=== PATIENT | male | born 1995 | race African-American/Black ===

== ENCOUNTER 2018-05-04 09:46 | Emergency (ER) | payer OTHER ==
[2018-05-04 10:25] LABS: Absolute Lymphocytes (CBC) 1.5 K/uL (0.7-4.9); Absolute Monocytes 0.4 K/uL (0.1-1.3); Absolute Neutrophil 3.2 K/uL (1.8-8.0); Basophils % 0.7 % (0-1.3); Eosinophils % 5.7 % (0-4.4); Hematocrit 47.4 % (39.6-49.0); Lymphocytes % 27.8 % (15.3-44.8); MCH 31.9 pg (27.0-35.0); MPV 8.4 fL (7.6-11.3); Monocytes % 7.4 % (3.3-12.3); RBC Red Blood Cell Count 5.16 M/uL (4.33-5.43)
[2018-05-04 10:30] LABS: Protime INR 0.97
[2018-05-04 10:53] LABS: ALT/SGPT 32 U/L (12-78); AST/SGOT 20 U/L (15-37); Albumin 4.3 g/dL (3.4-5.0); Alkaline Phosphatase 86 U/L (45-117); BUN Blood Urea Nitrogen 8 mg/dL (7-18); Bicarbonate 28 mmol/L (21-32); Bilirubin Direct 0.2 mg/dL (0-0.2); Bilirubin Total 0.8 mg/dL (0.2-1.0); Glucose Level 93 mg/dL (74-106); Potassium 4.1 mmol/L (3.5-5.1); Protein, Total 8.4 g/dL (6.4-8.2); Sodium Level 140 mmol/L (136-145)
[2018-05-04 10:59] LABS: Barbiturates NEGATIVE (NEGATIVE); Benzodiazepines NEGATIVE (NEGATIVE); Cocaine NEGATIVE (NEGATIVE); METHAMPHETAM NEGATIVE (NEGATIVE); Methadone NEGATIVE (NEGATIVE); Opiates NEGATIVE (NEGATIVE); Phencyclidine NEGATIVE (NEGATIVE); THC Cannibis NEGATIVE (NEGATIVE)
[2018-05-04 11:56] LABS: Urine Blood NEGATIVE (NEG); Urine Glucose NEGATIVE (NEG); Urine Protein NEGATIVE (NEG)
--- NOTE | 2018-05-04 12:35 | EDPHYS ---
Physician Documentation [facility] Name: Clark Vallecillo Age: 22 yrs Sex: Male : 1995 Arrival Date: 05/04/2018 Time: 09:43 Bed 2 Private MD: ED Physician Kan Salinas HPI: 05/04 23:07 This 22 yrs old Black Male presents to ER via [employer] with complaints of kdr ingestion of unknown medication. 23:07 The patient states that he took two pills to help him sleep. He states that he has been kdr doing this for some time. He denies any other injestion. Onset: The symptoms/episode began/occurred just prior to arrival, 2 hour(s) ago. Severity of symptoms: At their worst the symptoms were very mild in the emergency department the symptoms are unchanged. The patient has not experienced similar symptoms in the past. The patient has not recently seen a physician. Historical: - Allergies: 09:49 No Known Allergies; ss - Home Meds: 09:49 None [Active]; ss - PMHx: 09:49 None; ss - PSHx: 09:49 None; ss - Immunization history:: Adult Immunizations up to date. - Social history:: Smoking status: Patient/guardian denies using tobacco. - Ebola Screening: : Patient denies exposure to infectious person Patient denies travel to an Ebola-affected area in the 21 days before illness onset. ROS: 23:07 Constitutional: Negative for fever, chills, and weight loss, Eyes: Negative for injury, kdr pain, redness, and discharge, ENT: Negative for injury, pain, and discharge, Neck: Negative for injury, pain, and swelling, Cardiovascular: Negative for chest pain, palpitations, and edema, Respiratory: Negative for shortness of breath, cough, wheezing, and pleuritic chest pain, Abdomen/GI: Negative for abdominal pain, nausea, vomiting, diarrhea, and constipation, Back: Negative for injury and pain, : Negative for injury, bleeding, discharge, and swelling, MS/Extremity: Negative for injury and deformity, Skin: Negative for injury, rash, and discoloration, Neuro: Negative for headache, weakness, numbness, tingling, and seizure activity. Psych: Negative for depression, anxiety, suicide ideation, homicidal ideation, and hallucinations, Allergy/Immunology: Negative for hives, rash, and allergies, Endocrine: Negative for neck swelling, polydipsia, polyuria, polyphagia, and marked weight changes, Hematologic/Lymphatic: Negative for swollen nodes, abnormal bleeding, and unusual bruising. Exam: 23:07 Constitutional: This is a well developed, well nourished patient who is awake, alert, kdr and in no acute distress. Head/Face: Normocephalic, atraumatic. Eyes: Pupils equal round and reactive to light, extra-ocular motions intact. Lids and lashes normal. Conjunctiva and sclera are non-icteric and not injected. Cornea within normal limits. Periorbital areas with no swelling, redness, or edema. Neck: Trachea midline, no thyromegaly or masses palpated, and no cervical lymphadenopathy. Supple, full range of motion without nuchal rigidity, or vertebral point tenderness. No Meningismus. Chest/axilla: Normal chest wall appearance and motion. Nontender with no deformity. No lesions are appreciated. Cardiovascular: Regular rate and rhythm with a normal S1 and S2. No gallops, murmurs, or rubs. Normal PMI, no JVD. No pulse deficits. Respiratory: Lungs have equal breath sounds bilaterally, clear to auscultation and percussion. No rales, rhonchi or wheezes noted. No increased work of breathing, no retractions or nasal flaring. Abdomen/GI: Soft, non-tender, with normal bowel sounds. No distension or tympany. No guarding or rebound. No evidence of tenderness throughout. Back: No spinal tenderness. No costovertebral tenderness. Full range of motion. Skin: Warm, dry with normal turgor. Normal color with no rashes, no lesions, and no evidence of cellulitis. MS/ Extremity: Pulses equal, no cyanosis. Neurovascular intact. Full, normal range of motion. Neuro: Awake and alert, GCS 15, oriented to person, place, time, and situation. Cranial nerves II-XII grossly intact. Motor strength 5/5 in all extremities. Sensory grossly intact. Cerebellar exam normal. Normal gait. Psych: Awake, alert, with orientation to person, place and time. Behavior, mood, and affect are within normal limits. Vital Signs: 09:49 BP 115 / 82; Pulse 61; Resp 15; Temp 98.0(TE); Pulse Ox 99% on R/A; Weight 68.04 kg; ss Height 5 ft. 6 in. (167.64 cm); Pain 0/10; 12:16 BP 119 / 83; Pulse 62; Resp 14; Temp 98.2(TE); Pulse Ox 98% on R/A; Pain 0/10; ss 09:49 Body Mass Index 24.21 (68.04 kg, 167.64 cm) ss MDM: 12:34 Patient medically screened. kdr 23:07 Data reviewed: vital signs, nurses notes, lab test result(s). Counseling: I had a kdr detailed discussion with the patient and/or guardian regarding: the historical points, exam findings, and any diagnostic results supporting the discharge/admit diagnosis, lab results, radiology results, the need for outpatient follow up. 05/04 09:56 Order name: Acetaminophen; Complete Time: 11:27 kdr 05/04 09:56 Order name: Basic Metabolic Panel; Complete Time: 11:27 kdr 05/04 09:56 Order name: CBC with Diff; Complete Time: 11:27 kdr 05/04 09:56 Order name: ETOH Level; Complete Time: 11:27 kdr 05/04 09:56 Order name: Hepatic Function; Complete Time: 11:27 kdr 05/04 09:56 Order name: PT-INR; Complete Time: 11:27 kdr 05/04 09:56 Order name: Ptt, Activated; Complete Time: 11:27 kdr 05/04 09:56 Order name: Salicylate; Complete Time: 11:27 kdr 05/04 09:56 Order name: Urine Drug Screen; Complete Time: 11:27 kdr 05/04 09:56 Order name: EKG; Complete Time: 09:57 kdr 05/04 09:56 Order name: EKG - Nurse/Tech; Complete Time: 10:16 kdr 05/04 09:56 Order name: IV Saline Lock; Complete Time: 10:16 kdr 05/04 09:56 Order name: Labs collected and sent; Complete Time: 10:16 kdr 05/04 10:46 Order name: Urine Dipstick--Ancillary (enter results) eb 05/04 09:56 Order name: Urine Dipstick-Ancillary (obtain specimen); Complete Time: 11:00 kdr Administered Medications: No medications were administered Disposition: 05/04/18 12:34 Discharged to Home. Impression: [place] substance ingestion: non-toxic. - Condition is Stable. - Discharge Instructions: Nontoxic Ingestion. - Medication Reconciliation Form, Thank You Letter form. - Follow up: Private Physician; When: 1 - 2 days; Reason: If symptoms return, Further diagnostic work-up, Recheck today's complaints, Continuance of care, Re-evaluation by your physician. - Problem is new. - Symptoms are resolved. Signatures: Dispatcher [employer] EDAK Kan Salinas MD MD kdr Bryanna oHlley RN RN ss Corrections: (The following items were deleted from the chart) 12:47 12:34 05/04/2018 12:34 Discharged to Home. Impression: [place] substance ingestion: ss non-toxic. Condition is Stable. Forms are Medication Reconciliation Form, Thank You Letter, Antibiotic Education, Prescription Opioid Use. Follow up: Private Physician; When: 1 - 2 days; Reason: If symptoms return, Further diagnostic work-up, Recheck today's complaints, Continuance of care, Re-evaluation by your physician. Problem is new. Symptoms are resolved. kdr
--- NOTE | 2018-05-04 12:35 | ER ---
Nurse's Notes [facility] Name: Clark Vallecillo Age: 22 yrs Sex: Male : 1995 Arrival Date: 05/04/2018 Time: 09:43 Bed 2 Private MD: Diagnosis: [place] substance ingestion: non-toxic Presentation: 05/04 09:44 Presenting complaint: Patient states: Patient is in long term custody, and was in possession of two white, [place] tablets that he believed would help him sleep. Pt states, "somebody has been giving me these pills to help me sleep over the past few weeks, and I got caught with them in my hand today and I didn't want to get in trouble so I swallowed them." Denies SI/ HI. Transition of care: [facility]. Onset of symptoms was May 04, 2018. Risk Assessment: Do you want to hurt yourself or someone else? Patient reports no desire to harm self or others. Initial Sepsis Screen: Does the patient meet any 2 criteria? No. Patient's initial sepsis screen is negative. Does the patient have a suspected source of infection? No. Patient's initial sepsis screen is negative. Care prior to arrival: None. 09:44 Method Of Arrival: [employer] Enforcement: [place] [employer] 09:44 Acuity: JASPAL 3 ss Historical: - Allergies: 09:49 No Known Allergies; ss - Home Meds: 09:49 None [Active]; ss - PMHx: 09:49 None; ss - PSHx: 09:49 None; ss - Immunization history:: Adult Immunizations up to date. - Social history:: Smoking status: Patient/guardian denies using tobacco. - Ebola Screening: : Patient denies exposure to infectious person Patient denies travel to an Ebola-affected area in the 21 days before illness onset. Screenin:52 Abuse screen: Denies threats or abuse. Denies injuries from another. Nutritional ss screening: No deficits noted. Tuberculosis screening: Never had TB. Fall Risk None identified. Assessment: 09:52 General: Appears in no apparent distress. comfortable, Behavior is calm, cooperative, ss Denies fever, feeling ill, fatigue, chills. Pain: Denies pain. Neuro: Level of Consciousness is awake, alert, obeys commands, Oriented to person, place, time, situation, Director [employer] are equal bilaterally Facial symmetry appears normal, Pupils are PERRLA. Cardiovascular: Capillary refill < 3 seconds is brisk in bilateral fingers. Respiratory: Airway is patent Trachea midline Respiratory effort is even, unlabored, Respiratory pattern is regular, symmetrical. GI: Abdomen is non-distended, Patient currently denies abdominal pain, diarrhea, nausea, vomiting. : No signs and/or symptoms were reported regarding the genitourinary system. EENT: Nares are clear Oral mucosa is moist. Throat is clear. Derm: Skin is intact, is healthy with good turgor, Skin is dry, Skin is pink, warm \\T\\ dry. normal. Musculoskeletal: Range of motion: intact in all extremities, Swelling absent. 12:16 Reassessment: Patient appears in no apparent distress at this time. Patient and/or ss family updated on plan of care and expected duration. Pain level reassessed. Patient is alert, oriented x 3, equal unlabored respirations, skin warm/dry/pink. Patient denies pain at this time. Neuro: Level of Consciousness is awake, alert, obeys commands. Derm: Skin is pink, warm \\T\\ dry. Vital Signs: 09:49 BP 115 / 82; Pulse 61; Resp 15; Temp 98.0(TE); Pulse Ox 99% on R/A; Weight 68.04 kg; ss Height 5 ft. 6 in. (167.64 cm); Pain 0/10; 12:16 BP 119 / 83; Pulse 62; Resp 14; Temp 98.2(TE); Pulse Ox 98% on R/A; Pain 0/10; ss 09:49 Body Mass Index 24.21 (68.04 kg, 167.64 cm) ED Course: 09:43 Patient arrived in ED. ss 09:48 Kan Salinas MD is Attending Physician. kdr 09:49 Triage completed. ss 09:49 Arm band placed on right wrist. ss 09:52 Patient has correct armband on for positive identification. Bed in low position. two long term guards remain with patient. Pt remains restrained in wrist and ankle shackles per [facility] protocol. 09:57 Bryanna Holley RN is Primary Nurse. ss 10:17 Initial lab(s) drawn, by me, sent to lab. Inserted saline lock: 20 gauge in right hand, em1 using aseptic technique. Blood collected. Missed attempt(s): 20 gauge in left forearm. Bleeding controlled, band aid applied, catheter tip intact. 10:23 EKG done, by drug abuse technician. reviewed by Kan Salinas MD. at1 12:46 No provider procedures requiring assistance completed. IV discontinued, intact, ss bleeding controlled, No redness/swelling at site. Pressure dressing applied. Administered Medications: No medications were administered Outcome: 12:34 Discharge ordered by . kdr 12:46 Discharged to [employer] ss 12:46 Condition: good 12:46 Discharge instructions given to patient, long term guards Instructed on discharge instructions, follow up and referral plans. Demonstrated understanding of instructions, follow-up care. 12:47 Patient left the ED. Signatures: Kan Salinas MD MD kdr Peter Gale em1 Bryanna Holley, RAYMUNDO RN Savanna Lawler, slice plug cutter operator helper EKG Tat1
--- NOTE | 2018-05-04 14:27 | EKG ---
Test Date: 2018-05-04 Test Time: 10:13:15 Batch Room Technician: TRI MEASUREMENT RESULTS: Intervals: Rate: 65 PA: 168 QRSD: 96 QT: 368 QTc: 382 [place]: P: 54 PA: 168 QRS: 67 T: 55 INTERPRETIVE STATEMENTS: Normal sinus rhythm Early repolarization Normal ECG No previous ECG available for comparison Electronically Signed On 05-04-18 14:26:19 CDT by Alberto Murphy
== END 2018-05-04 12:47 | disposition home or self-care (01) ==
LOC: ER 09:46
DX: T50.905A Adverse effect of unspecified drugs, medicaments and biological substances, initial encounter (principal)
CPT/HCPCS: 36415; 80048; 80076; 80307; 80320; 80329; 81003; 85025; 85610; 85730; 93005; 99283